=== PATIENT | female | born 1960 | race American Indian/Alaskan Native ===

== ENCOUNTER 2016-06-21 14:04 | Outpatient (CLI) | payer OTHER ==
[2016-06-21 14:45] LABS: Hematocrit 41.7 % (30.3-42.9); Hemoglobin 13.4 gm/dl (10.1-14.3); Mean Corpuscular HGB Conc 32 % (30-34); Mean Corpuscular Hemoglobin 27 pg (28-32); Mean Corpuscular Volume 82 fl (79-97); Platelet Count 265 K/mm3 (140-440); Red Blood Count 5.06 M/mm3 (3.65-5.03); Red Cell Distribution Width 13.9 % (13.2-15.2); White Blood Count 5.7 K/mm3 (4.5-11.0)
[2016-06-21 15:05] LABS: Alanine Aminotransferase 32 units/L (7-56); Albumin 3.9 g/dL (3.9-5); Albumin/Globulin Ratio 1.3 %; Alkaline Phosphatase 122 units/L (35-129); Anion Gap 18 mmol/L; Bilirubin,Total 0.3 mg/dL (0.1-1.2); Blood Urea Nitrogen 16 mg/dL (7-17); Calcium 8.9 mg/dL (8.4-10.2); Carbon Dioxide 24 mmol/L (22-30); Chloride 105.6 mmol/L (98-107); Cholesterol 204 mg/dL (50-199); Glucose 92 mg/dL (65-100); HDL Cholesterol 52 mg/dL (40-59); LDL Cholesterol,Direct 134 mg/dL (50-130); Potassium 4.3 mmol/L (3.6-5.0); Sodium 143 mmol/L (137-145); Total Protein 6.9 g/dL (6.3-8.2); Triglycerides 91 mg/dL (2-149)
--- NOTE | 2016-06-21 15:12 | XRay Report ---
Chest 2 views. Findings: The heart and lungs reveal no acute or significant abnormalities.
== END 2016-06-21 14:05 | disposition home or self-care (01) ==
LOC: XRAY 14:04
PROVIDERS: ATTEND Internal Medicine
DX: J45.998 Other asthma (principal)
CPT/HCPCS: 36415; 71020; 80053; 80061; 82785; 84439; 84443; 85027